=== PATIENT | female | born 1980 | race Caucasian/White ===

== ENCOUNTER 2018-06-22 05:47 | Inpatient (IN) | payer OTHER ==
[2018-06-21 14:22] LABS: BASOPHILS ABSOLUTE AUTO 0.02 K/mm3 (0.00-0.23); BASOPHILS PERCENT AUTO 0 % (0-2); EOSINOPHILS ABSOLUTE AUTO 0.05 K/mm3 (0.00-0.68); EOSINOPHILS PERCENT AUTO 1 % (0-6); Hematocrit 34.2 % (33.0-51.0); Hemoglobin 11.3 g/dL (11.5-16.0); IMMATURE GRAN ABSOLUTE AUTO 0.06 K/mm3 (0.00-0.10); IMMATURE GRAN PERCENT AUTO 1 % (0-1); LYMPHOCYTES ABSOLUTE AUTO 1.01 K/mm3 (0.84-5.20); LYMPHOCYTES PERCENT AUTO 14 % (21-46); MONOCYTES ABSOLUTE AUTO 0.72 K/mm3 (0.16-1.47); MONOCYTES PERCENT AUTO 10 % (4-13); Mean Corpuscular HGB 31.3 pg (26.0-34.0); Mean Corpuscular Volume 95 fL (80-100); Mean Platelet Volume 9.3 fL (9.1-12.4); NEUTROPHILS ABSOLUTE AUTO 5.38 K/mm3 (1.96-9.15); NEUTROPHILS PERCENT AUTO 74 % (41-73); Platelet Count 185 K/mm3 (150-400); RDW Coefficient Variation 13.3 % (11.7-14.2); RDW Standard Deviation 46.3 fL (35.1-46.3); Red Blood Cell Count 3.61 M/mm3 (3.80-5.20); White Blood Cell Count 7.24 K/mm3 (4.00-11.30)
[~2018-06-22] VITALS: Ht 160 cm; Wt 75.0 kg
[2018-06-22 08:08] LABS: PO2 Cord - Arterial 15.8 mmHg (16-20); pH Cord - Arterial 7.35 (7.28-7.35)
[2018-06-22 08:10] LABS: PCO2 Cord - Venous 36.1 mmHg (40-50); pH Umbilical Cord - Venous 7.46 (7.26-7.35)
--- NOTE | 2018-06-22 09:12 | NUR ---
06/22/18 0912 Kristin Kirkland 0748 DELIVERY LIVE FEMALE WEIGHT 7# 1OX 3205GM, HEAD 14.25 INCHES, CHEST 12.5, LENGTH 20 INCHES, PLACENTA 825GM DELIVERED AT [facility] APGARS 9/9, UMBILCAL CORD BLOOD COLLECTED LABELED AND GIVEN TO Kimberly PADILLA RN, UMBILCAL CORD SEGMENT SENT TO RT FOR CORD GASES, SPECIMEN LABELED. Vignesh BURGESS CNM ACQUIRED NEEDLE POKE THROUGH DOUBLE GLOVES.
--- NOTE | 2018-06-22 17:28 | NUR ---
ASSITS ROUNDING FOR . MOM IS A VERY EXPERIENCED MOM SHE REPORTS FEEDING AND LATCHING IS GOING WELL.
[2018-06-23 06:17] LABS: BASOPHILS ABSOLUTE AUTO 0.03 K/mm3 (0.00-0.23); BASOPHILS PERCENT AUTO 0 % (0-2); EOSINOPHILS ABSOLUTE AUTO 0.13 K/mm3 (0.00-0.68); EOSINOPHILS PERCENT AUTO 1 % (0-6); Hematocrit 33.7 % (33.0-51.0); IMMATURE GRAN ABSOLUTE AUTO 0.06 K/mm3 (0.00-0.10); IMMATURE GRAN PERCENT AUTO 1 % (0-1); LYMPHOCYTES PERCENT AUTO 11 % (21-46); MONOCYTES ABSOLUTE AUTO 1.09 K/mm3 (0.16-1.47); MONOCYTES PERCENT AUTO 10 % (4-13); Mean Corpuscular HGB Conc 32.6 g/dL (31.5-36.5); Mean Corpuscular Volume 95 fL (80-100); Mean Platelet Volume 9.6 fL (9.1-12.4); NEUTROPHILS ABSOLUTE AUTO 8.35 K/mm3 (1.96-9.15); NEUTROPHILS PERCENT AUTO 77 % (41-73); Platelet Count 174 K/mm3 (150-400); RDW Coefficient Variation 13.4 % (11.7-14.2); Red Blood Cell Count 3.55 M/mm3 (3.80-5.20); White Blood Cell Count 10.86 K/mm3 (4.00-11.30)
--- NOTE | 2018-06-23 15:12 | NUR ---
REPORTS DOING WELL. JUST MEDICATED WITH MOTRIN, PT WOULD LIKE IV OUT AFTER 1600 DOSE OF ANCEF, PERCOCET IS DUE AT 1600ISH
[2018-06-24] MEDS ORDERED: IBUP800 PO (11:57)
[2018-06-24] MEDS ORDERED: Percocet 5-3251 EACH (11:58)
--- NOTE | 2018-06-24 13:28 | NUR ---
D/C EDUCATION DONE. PT WOULD LIKE TO LEAVE AT 1400 WHEN RETURNS
--- NOTE | 2018-06-24 15:40 | NUR ---
D/C HOME IN WHEELCHAIR PER PT REQUEST. NB IN CARSEAT. FAMILY AT SIDE.
== END 2018-06-24 15:35 | disposition home or self-care (01) | DRG 788 ==
LOC: BC 05:47
PROVIDERS: ADMIT Obstetrics & Gynecology
PROC: 10D00Z1 Extraction of Products of Conception, Low, Open Approach (ICD-10-PCS; principal; 2018-06-22 07:30)
DX: O34.211 Maternal care for low transverse scar from previous cesarean delivery (principal); Z37.0 Single live birth; Z3A.38 38 weeks gestation of pregnancy
CPT/HCPCS: 36415; 82803; 85025; 86850; 86900; 86901; J0690; J1885; J2210; J2370; J2405; J2590; J2765; J3010; J7120

== ENCOUNTER → 2023-05-28 | Outpatient (CLI) | payer OTHER ==
[~2023-05-28] MED LIST: IBUP800 PO; Percocet 5-3251 EACH
[2023-05-28 15:24] LABS: Bacterial Vaginosis PCR Negative (NEGATIVE); Candida Group, PCR NOT DETECTED (NOT DETECT); Candida glabrata-krusei, PCR NOT DETECTED (NOT DETECT)
[2023-05-30 09:45] LABS: C. TRACHOMATIS BY TMA,THINPREP Negative (Negative); N. GONORRHOEAE BY TMA,THINPREP Negative (Negative); SPECIMEN SOURCE Vaginal
[2023-06-03 22:11] LABS: HPV HIGH RISK BY TMA Not Detected; HPV SOURCE Vaginal
== END | disposition home or self-care (01) ==
LOC: LAB 13:40 → LAB SHORT 13:40
PROVIDERS: Family Medicine
DX: Z01.419 Encounter for gynecological examination (general) (routine) without abnormal findings (principal)
CPT/HCPCS: 87481; 87491; 87591; 87624; 87661; 87801; G0123